=== PATIENT | female | born 1950 ===

== ENCOUNTER 2022-06-27 12:37 | Inpatient (IN) ==
[2022-06-27 13:35] LABS: Hematocrit 34 % (35-47); Hemoglobin 11.4 g/dL (12.0-16.0); Mean Corpuscular HGB Conc 34 g/dL (31-36); Mean Corpuscular Hemoglobin 28 pg (27-31); Mean Corpuscular Volume 83 fL (80-97); Mean Platelet Volume 8.3 fL (7.4-10.4); Platelet Count 132 10^3/uL (150-450); Red Blood Count 4.07 10^6 /uL (3.70-4.87); Red Cell Distribution Width 14 % (10-15); White Blood Count 5.6 10^3/uL (3.5-10.8)
[2022-06-27 14:17] LABS: Albumin 3.6 g/dL (3.2-5.2); Albumin/Globulin Ratio 1.1 (1-3); Calcium 8.5 mg/dL (8.6-10.3); Globulin 3.3 g/dL (2-4); Potassium 3.9 mmol/L (3.5-5.0); Total Bilirubin 0.9 mg/dL (0.2-1.0); Total Protein 6.9 g/dL (6.4-8.9); eGFR CKD-EPI 95.1 (>60)
[2022-06-27 14:29] LABS: RBC Morphology Normal (Normal)
[2022-06-27 14:30] LABS: ABS Lymphocytes 1.7 10^3/ul (1.0-4.8); ABS Monocytes 0.5 10^3/ul (0-0.8); ABS Neutrophils 3.3 10^3/ul (1.5-7.7); Eosinophil % 0.2 %; Nucleated Red Blood Cells % 0.1
[2022-06-27] MEDS ORDERED: NS 0.9% 1000 ml BAG 1,000 ML IV ONE ×3 (15:23→23:30)
[2022-06-27 16:12] LABS: C Reactive Protein 208.21 mg/L (<8.01)
[2022-06-27] MEDS ORDERED: cefTRIAXone 2 gm/50 mL D5W 2 GM/50 ML BAG IV ONE (16:37)
[2022-06-27 17:16] LABS: Urine Appearance Clear; Urine Bilirubin Negative (Negative); Urine Color Yellow; Urine Glucose Negative (Negative)
[2022-06-27 17:17] LABS: Urine Ketones 1+ (15mg/dL) (Negative); Urine Nitrite Negative (Negative); Urine Protein Negative (Negative); Urine Specific Gravity <=1.005 (1.005-1.030); Urine Urobilinogen 1.0 (Negative) (Negative)
[2022-06-27 17:20] LABS: Urine Bacteria 1+ (Absent); Urine Red Blood Cell 1+(3-5/hpf) (Absent); Urine Squamous Epithelial Cell Present (Absent); Urine White Blood Cell Trace(0-5/hpf) (Absent)
[2022-06-27 17:34] LABS: Urine Sodium Concentration < 18 mmol/L
[2022-06-27 17:42] LABS: Urine Creatinine Concentration 42.13 mg/dL
[2022-06-27 18:21] LABS: Calcium 7.6 mg/dL (8.6-10.3); Potassium 3.4 mmol/L (3.5-5.0); eGFR CKD-EPI 100.7 (>60)
[2022-06-27 18:32] LABS: Urine Osmo 146 mOsm/kg (150-1150)
[2022-06-27 18:32] LABS: Osmolality Serum 241 mOsm/kg (275-295)
[2022-06-27] MEDS ORDERED: NS 0.9% 1000 ml BAG 2,000 ML IV ONE (23:18)
[2022-06-27] MEDS ORDERED: NS 0.9% 1000 ml BAG 1,000 ML IV SCH (23:30)
[2022-06-28] MEDS: Enoxaparin 40 MG/0.4 ML SYR SUBCUT SCH ×2 (00:03→20:31)
[2022-06-28] MEDS ORDERED: Albuterol HFA INHALER 8 gm MDI INH PRN (01:37)
[2022-06-28] MEDS: Fluticasone NASAL SPRAY 50MCG 16 gm SPRAY BTL INTRANASAL SCH (08:25)
[2022-06-28 08:42] LABS: Magnesium 1.9 mg/dL (1.9-2.7); eGFR CKD-EPI 97.9 (>60)
[2022-06-28 12:45] LABS: Calcium 8.3 mg/dL (8.6-10.3); Potassium 3.8 mmol/L (3.5-5.0); eGFR CKD-EPI 97.5 (>60)
[2022-06-28] MEDS ORDERED: D5W 1000 ml BAG 1,000 ML IV SCH (16:00)
[2022-06-28] MEDS ORDERED: NS 0.9% IVPB ONE (16:30)
[2022-06-28] MEDS ORDERED: DESMOPRESSIN ACETATE IVPB ONE (16:30)
[2022-06-28] MEDS ORDERED: cefTRIAXone 1 gm/50 mL D5W 1 GM/50 ML BAG IV SCH (17:00)
[2022-06-28 22:27] LABS: Calcium 8.3 mg/dL (8.6-10.3); Potassium 3.8 mmol/L (3.5-5.0); eGFR CKD-EPI 100.7 (>60)
[2022-06-28 22:40] LABS: Calcium 8.4 mg/dL (8.6-10.3); Potassium 3.9 mmol/L (3.5-5.0)
[2022-06-28 22:46] LABS: eGFR CKD-EPI 100.2 (>60)
[2022-06-29 02:20] LABS: Potassium 3.7 mmol/L (3.5-5.0); eGFR CKD-EPI 103.3 (>60)
[2022-06-29 06:26] LABS: Calcium 8.1 mg/dL (8.6-10.3); Potassium 3.5 mmol/L (3.5-5.0); eGFR CKD-EPI 101.2 (>60)
[2022-06-29] MEDS ORDERED: Desmopressin Acetate 2 MCG in NS 0.9% 50 ML 50 ML IVPB ONE (07:40)
[2022-06-29] MEDS: Fluticasone NASAL SPRAY 50MCG 16 gm SPRAY BTL INTRANASAL SCH (07:51)
[2022-06-29] MEDS ORDERED: D5NS 0.9% 1000 ml BAG 1,000 ML IV SCH (08:00)
[2022-06-29] MEDS ORDERED: D5W 1000 ml BAG 1,000 ML IV SCH (08:00)
[2022-06-29 10:17] LABS: Calcium 8.4 mg/dL (8.6-10.3); Potassium 3.5 mmol/L (3.5-5.0); eGFR CKD-EPI 101.2 (>60)
[2022-06-29 10:37] LABS: C Reactive Protein 116.97 mg/L (<8.01)
[2022-06-29 11:13] VITALS: BP 137/71
[2022-06-29 14:43] LABS: Calcium 8.4 mg/dL (8.6-10.3); Potassium 3.8 mmol/L (3.5-5.0); eGFR CKD-EPI 101.7 (>60)
[2022-06-30 20:38] LABS: Anaplasma phagocytophilum Positive (Negative); B. miyamotoi PCR, B Negative (Negative); Babesia divergens/MO-1 Negative (Negative); Babesia ducani Negative (Negative); Ehrlichia chaffeensis Negative (Negative); Ehrlichia ewingii/canis Negative (Negative); Ehrlichia muris eauclairensis Negative (Negative)
[2022-07-03 17:58] LABS: IgG Immunoblot Positive (Negative); IgM Immunoblot Positive (Negative)
== END 2022-06-29 16:05 | disposition home or self-care (01) | DRG 641 ==
LOC: ED 12:37 → SUATTDRO 20:29 → EDHOLD 20:29 → SSU 23:44
PROVIDERS: ADMIT Internal Medicine; ATTEND Internal Medicine